=== PATIENT | male | born 1965 | race Two or more races ===

== ENCOUNTER 2019-02-09 12:27 | Emergency (ER) | payer BC ==
[2019-02-09] MEDS ORDERED: Proparacaine 0.5% Ophth Soln 15 ML Bottle EYELF ONE (13:31)
--- NOTE | 2019-02-09 13:31 | EDM.PDOC ---
ED HPI GENERAL MEDICAL PROBLEM - General Chief Complaint: Eye Problems Stated Complaint: LEFT EYE IRRITATION Time Seen by Provider: 02/09/19 13:07 Source of Information: Reports: Patient History Limitations: Reports: Language Barrier, Other (he does speak some Vincentian; seemed to be able to tell me what is going on without difficulty.) - History of Present Illness INITIAL COMMENTS - FREE TEXT/NARRATIVE: He states he has felt like something is scratching his left eye for the last 3 days. no injury; denies anyone else having issues; no visual problems; has had some yellow discharge. Onset: Gradual Duration: Day(s): (3) Location: Reports: Other (left eye) Quality: Reports: Other (irritating/scratchy) Severity: Mild Improves with: Reports: None Worsens with: Reports: None Associated Symptoms: Reports: No Other Symptoms Treatments PIT CLERK: Reports: Other (see below) (visine; helped for a short period of time) - Related Data Allergies Allergy/AdvReac Type Severity Reaction Status Date / Time No Known Allergies Allergy Verified 02/09/19 13:35 Home Meds: Home Meds Polymyxin B Sulf/Trimethoprim [Polymyxin B-Tmp Eye Drops] 10 ml OP Q4HR 7 Days # 1 bottle 02/09/19 [Rx] ED ROS GENERAL - Review of Systems Review Of Systems: See Below Constitutional: Reports: No Symptoms HEENT: Reports: Other (left eye irritation) Respiratory: Reports: No Symptoms Cardiovascular: Reports: No Symptoms GI/Abdominal: Reports: No Symptoms Musculoskeletal: Reports: No Symptoms Skin: Reports: No Symptoms Neurological: Reports: No Symptoms Psychiatric: Reports: No Symptoms ED EXAM GENERAL W FULL EYE - Physical Exam Exam: See Below Exam Limited By: No Limitations General Appearance: Alert, WD/WN, No Apparent Distress Eye Exam: Bilateral Eye: EOMI, Normal Inspection, PERRL Eyelids: Left: Erythema, Lid Everted for Exam, Bilateral: Normal Appearance Conjunctiva & Sclera: Left: Normal Appearance Cornea Exam: Left: Corneal Abrasion Extraocular Movements: Bilateral: Intact Pupillary Size: Bilateral: 4 mm Head: Atraumatic, Normocephalic Neck: Normal Inspection, Supple, Full Range of Motion Respiratory/Chest: No Respiratory Distress, Lungs Clear Cardiovascular: Regular Rate, Rhythm Extremities: Normal Range of Motion Neurological: Alert, Oriented, CN II-XII Intact, Normal Cognition, Normal Gait Psychiatric: Normal Affect, Normal Mood Skin Exam: Warm, Dry ED EYE w/ Add Procedure - Eye Procedure Alcaine Drops Administered: Yes - Additional/Other Procedure(s) Other (Free Text) Procedure(s) [Text1]: [place]ard lamp used; reveals corneal abrasion at 0900 position. Course - Vital Signs Last Recorded V/S: Last Vital Signs Temp 95.9 F 02/09/19 13:49 Pulse 72 02/09/19 13:49 Resp 16 02/09/19 13:49 BP 169/105 H 02/09/19 13:49 Pulse Ox 98 02/09/19 13:49 - Orders/Labs/Meds Orders: Active Orders 24 hr Category Date Time Status Visual Acuity [Vision Test] [RC] ASDIRECTED Care 02/09/19 13:09 Active Meds: Medications Discontinued Medications Generic Name Dose Route Start Last Admin Trade Name Freq PRN Reason Stop Dose Admin Proparacaine HCl 1 ml 02/09/19 13:31 02/09/19 13:50 Proparacaine 0.5% Ophth Soln EYELF 02/09/19 13:32 1 ml ONETIME ONE Administration Departure - Departure Time of Disposition: 14:30 Disposition: Home, Self-Care 01 Condition: Good Clinical Impression: Corneal abrasion Qualifiers: Encounter type: initial encounter Laterality: left Qualified Code(s): S05.02XA - Injury of conjunctiva and corneal abrasion without foreign body, left eye, initial encounter - Discharge Information *PRESCRIPTION DRUG MONITORING PROGRAM REVIEWED*: Not Applicable *COPY OF PRESCRIPTION DRUG MONITORING REPORT IN PATIENT [place]: Not Applicable Prescriptions: Polymyxin B Sulf/Trimethoprim [Polymyxin B-Tmp Eye Drops] 10 ml OP Q4HR 7 Days # 1 bottle Instructions: Corneal Abrasion, [id number] Referrals: PCP,None [Primary Care Provider] - Forms: ED Department Discharge Additional Instructions: Recommend follow up with eye doctor next week Return if symptoms worsen Have your blood pressure evaluated with your primary care within the next week. - Problem List & Annotations (1) Corneal abrasion SNOMED Code(s): 73695480 Code(s): S05.00XA - INJ CONJUNCTIVA AND CORNEAL ABRASION W/O FB, UNSP EYE, INIT Status: Acute Priority: Low Qualifiers: Encounter type: initial encounter Laterality: left Qualified Code(s): S05.02XA - Injury of conjunctiva and corneal abrasion without foreign body, left eye, initial encounter - Problem List Review Problem List Initiated/Reviewed/Updated: Yes - My Orders Last 24 Hours: My Active Orders 02/09/19 13:09 Visual Acuity [Vision Test] [RC] ASDIRECTED - Assessment/Plan Last 24 Hours: My Active Orders 02/09/19 13:09 Visual Acuity [Vision Test] [RC] ASDIRECTED
== END 2019-02-09 14:05 | disposition home or self-care (01) ==
LOC: JP.ED 12:27
DX: S05.02XA Injury of conjunctiva and corneal abrasion without foreign body, left eye, initial encounter (principal); X58.XXXA Exposure to other specified factors, initial encounter
CPT/HCPCS: 99283; A9270

== ENCOUNTER 2019-05-31 00:30 | Emergency (ER) | payer BC ==
[2019-05-31] MEDS ORDERED: Ketorolac 60 MG/2 ML SDV IM ONE (00:48)
[2019-05-31] MEDS ORDERED: Acetaminophen/oxyCODONE 325-5 MG Tab PO ONE (00:51)
--- NOTE | 2019-05-31 00:53 | EDM.PDOC ---
ED HPI GENERAL MEDICAL PROBLEM - General Chief Complaint: Lower Extremity Injury/Pain Stated Complaint: LEFT KNEE PAIN Time Seen by Provider: 05/31/19 00:40 Source of Information: Reports: Patient, Old Records History Limitations: Reports: Language Barrier - History of Present Illness INITIAL COMMENTS - FREE TEXT/NARRATIVE: 53 yo male here for L knee pain. He has passable Telugu skills. He was in the clinic recently for this problem and was dx with prepatellar bursitis and placed on cephalexin and naproxen. He somehow managed to get the cephalexin and is taking it, but never go the naproxen. He is taking acetaminophen. He says since he was in the clinic his problem has only worsened. He has throbbing pain at rest that is keeping him awake. He does not have a lot of problem with walking. 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 Constitutional: Reports: No Symptoms Musculoskeletal: Reports: Joint Pain (anterior L knee pain) Skin: Reports: No Symptoms Neurological: Reports: No Symptoms ED EXAM, GENERAL - Physical Exam Exam: See Below Exam Limited By: No Limitations General Appearance: Alert, WD/WN, No Apparent Distress Extremities: Pedal Edema (swelling of area below the patella and above the tibial tubercle. No joint effusion is apparent. No jt line tenderness. ), Limited Range of Motion (reduced flexion ability due to swelling of prepatellar bursal area. ), Increased Warmth (over prepatellar bursa). No: No Pedal Edema, Redness Skin Exam: Warm, Dry, Intact, Normal Color, No Rash, Other (calloused skin over both anterior knee areas. ) Course - Vital Signs Last Recorded V/S: Last Vital Signs Temp 36.1 C 05/31/19 00:39 Pulse 76 05/31/19 00:39 Resp 20 05/31/19 00:39 BP 162/80 H 05/31/19 00:39 Pulse Ox 97 05/31/19 00:39 - Orders/Labs/Meds Orders: Active Orders 24 hr Category Date Time Status Ketorolac [Toradol] Med 05/31/19 00:48 Once 60 mg IM ONETIME ONE Departure - Departure Time of Disposition: 01:10 Disposition: Home, Self-Care 01 Condition: Fair Clinical Impression: Prepatellar bursitis Qualifiers: Laterality: left Qualified Code(s): M70.42 - Prepatellar bursitis, left knee - Discharge Information *PRESCRIPTION DRUG MONITORING PROGRAM REVIEWED*: No *COPY OF PRESCRIPTION DRUG MONITORING REPORT IN PATIENT [place]: No Instructions: Bursitis, [id number] Referrals: PCP,None [Primary Care Provider] - Additional Instructions: No kneeling. Ice the left anterior knee area for 15 minutes 3-4 times daily. Start the naproxen 500 mg every 12 hrs with food starting in the morning. You may continue the acetaminophen up to 1000 mg every 6 hrs for added pain relief. Finish your cephalexin. Return to the clinic for recheck if not improving. You may use the [place] at night for pain relief if acetaminophen is not strong enough to control your pain. - My Orders Last 24 Hours: My Active Orders 05/31/19 00:48 Ketorolac [Toradol] 60 mg IM ONETIME ONE - Assessment/Plan Last 24 Hours: My Active Orders 05/31/19 00:48 Ketorolac [Toradol] 60 mg IM ONETIME ONE
== END 2019-05-31 01:22 | disposition home or self-care (01) ==
LOC: JP.ED 00:30
DX: M70.42 Prepatellar bursitis, left knee (principal)
CPT/HCPCS: 96372; 99283; A9270; J1885

== ENCOUNTER 2019-09-07 18:51 | Emergency (ER) | payer BC ==
[2019-09-07] MEDS ORDERED: Meclizine 25 MG Tab PO ONE (19:44)
--- NOTE | 2019-09-07 19:50 | EDM.PDOC ---
ED HPI GENERAL MEDICAL PROBLEM - General Chief Complaint: General Stated Complaint: DIZZY, NAUSEA Time Seen by Provider: 09/07/19 19:25 Source of Information: Reports: Patient History Limitations: Reports: No Limitations - History of Present Illness INITIAL COMMENTS - FREE TEXT/NARRATIVE: This is a 53-year-old male presents to concerns of dizziness and room spinning. He reports that he awoke from sleep this afternoon with a mild bifrontal headache. This dissipated but he continues to have sensation that he is moving. He notes that this is worse when he lowers his head towards the ground. He's had no associated vision changes, no difficulty with speech. No gait instability , no difficulty with coordination. No weakness in the extremities. He has no history of similar symptoms in the past. He current has no headache. No neck pain. Reports no history of chronic medical problems. History obtained with professional speech language pathologist prn. - Related Data Allergies Allergy/AdvReac Type Severity Reaction Status Date / Time No Known Allergies Allergy Verified 09/07/19 19:17 Home Meds: Home Meds Meclizine [Antivert] 25 mg PO Q6H PRN #10 tab 09/07/19 [Rx] Past Medical History - Past Health History Medical/Surgical History: Denies Medical/Surgical History - Past Surgical History GI Surgical History: Reports: Appendectomy Social & Family History - Tobacco Use Smoking Status *Q: Never Smoker - Caffeine Use Caffeine Use: Reports: Coffee - Recreational Drug Use Recreational Drug Use: No ED ROS GENERAL - Review of Systems Review Of Systems: See Below Constitutional: Reports: No Symptoms HEENT: Reports: No Symptoms Respiratory: Reports: No Symptoms Cardiovascular: Reports: No Symptoms Endocrine: Reports: No Symptoms GI/Abdominal: Reports: Nausea : Reports: No Symptoms Musculoskeletal: Reports: No Symptoms Skin: Reports: No Symptoms Neurological: Reports: Other (vertigo). Denies: Numbness, Syncope, Trouble Speaking, Weakness, Gait Disturbance Psychiatric: Reports: No Symptoms Hematologic/Lymphatic: Reports: No Symptoms Immunologic: Reports: No Symptoms ED EXAM, GENERAL - Physical Exam Exam: See Below Exam Limited By: No Limitations General Appearance: Alert, No Apparent Distress Ears: Normal External Exam Nose: Normal Inspection Throat/Mouth: Normal Inspection Head: Atraumatic, Normocephalic Respiratory/Chest: Lungs Clear GI/Abdominal: Soft, Non-Tender Back Exam: Normal Inspection Neurological: Alert, Oriented, CN II-XII Intact, Normal Gait, No Motor/Sensory Deficits, Other (EOMI, no nystagmus. Cranial nerves otherwise intact, speech is fluid. Finger nose testing intact. Stable gait. No extermity weakness.) Psychiatric: Normal Affect, Normal Mood Skin Exam: Warm, Dry Course - Vital Signs Last Recorded V/S: Last Vital Signs Temp 36.4 C 09/07/19 19:09 Pulse 67 09/07/19 19:09 Resp 16 09/07/19 19:09 BP 161/92 H 09/07/19 19:09 Pulse Ox 96 09/07/19 19:09 - Orders/Labs/Meds Orders: Active Orders 24 hr Category Date Time Status Meclizine [Antivert] Med 09/07/19 19:44 Once 25 mg PO ONETIME ONE Medication Orders Meclizine HCl (Antivert) 25 mg PO ONETIME ONE Stop: 09/07/19 19:45 Meds: Medications Generic Name Dose Route Start Last Admin Trade Name Freq PRN Reason Stop Dose Admin Meclizine HCl 25 mg 09/07/19 19:44 Antivert PO 09/07/19 19:45 ONETIME ONE - Re-Assessments/Exams Free Text/Narrative Re-Assessment/Exam: 53 yo who presents with concerns of vertigo, nausea. Normal neurologic exam. Reports some positional component. Had mild ASHER earlier today but this has resolved. History and exam is consistent with peripheral etiology, I don't think we need to work him up for stroke. Will treat symptomatically with script for meclizine. PCP f/u prn. Will return to the ER for worsening symptoms or new concerning symptoms suggestive of stroke. 09/07/19 19:54 Departure - Departure Time of Disposition: 19:55 Disposition: Home, Self-Care 01 Clinical Impression: Vertigo - Discharge Information Instructions: Vertigo, [id number] Referrals: PCP,None [Primary Care Provider] - Additional Instructions: Please take the prescribed antibiotic. Return to the ER for worsening symptoms, particularly if you develop difficulty with walking, speech changes, double vision, or other new symptoms which are concerning to you. Follow up with your primary doctor as needed. Sepsis Event Note - Evaluation Sepsis Screening Result: No Definite Risk - Focused Exam Vital Signs: Vital Signs Temp Pulse Resp BP Pulse Ox 09/07/19 19:09 36.4 C 67 16 161/92 H 96 Date Exam was Performed: 09/07/19 Time Exam was Performed: 19:45 - My Orders Last 24 Hours: My Active Orders 09/07/19 19:44 Meclizine [Antivert] 25 mg PO ONETIME ONE - Assessment/Plan Last 24 Hours: My Active Orders 09/07/19 19:44 Meclizine [Antivert] 25 mg PO ONETIME ONE
== END 2019-09-07 20:32 | disposition home or self-care (01) ==
LOC: JP.ED 18:51
DX: R42 Dizziness and giddiness (principal)
CPT/HCPCS: 99283; A9270

== ENCOUNTER 2021-08-11 21:16 | Emergency (ER) | payer BC, OTHER ==
--- NOTE | 2021-08-11 22:13 | EDM.PDOC ---
ED HPI GENERAL MEDICAL PROBLEM - General Chief Complaint: Respiratory Problem Stated Complaint: cough, sorethroat, positive covid test Time Seen by Provider: 08/11/21 21:35 Source of Information: Reports: Patient History Limitations: Reports: Language Barrier (placement coordinator services used) - History of Present Illness INITIAL COMMENTS - FREE TEXT/NARRATIVE: 55-year-old male presents to the emergency department with sore throat, cough, pleuritic chest pain, and pain across the upper abdomen from coughing. He was diagnosed with acute COVID-19 illness on August 08. He started having symptoms 2 days prior to this. Patient has had 2 doses of COVID-19 vaccine. Last immunization was in February. Patient was not aware of any ill contacts. Currently denies fever. Patient's health history is remarkable for history of renal stones. Blood pressure is elevated in the emergency department and he denies any medication for hypertension. Surgical history includes appendectomy and a procedure for pilonidal cyst. Denies any medication allergies. Non- smoker. Enjoys drinking beer on the weekends. Will have 3-4 beers at a time. No recreational drug use. Family history is unremarkable. Throat Pain Score (Numeric/FACES): 3 - Related Data Allergies Allergy/AdvReac Type Severity Reaction Status Date / Time No Known Allergies Allergy Verified 08/11/21 21:21 Past Medical History - Past Health History Medical/Surgical History: Denies Medical/Surgical History Genitourinary History: Reports: Renal Calculus - Past Surgical History GI Surgical History: Reports: Appendectomy Social & Family History - Tobacco Use Tobacco Use Status *Q: Unknown Ever Used Tobacco - Caffeine Use Caffeine Use: Reports: Tea - Recreational Drug Use Recreational Drug Use: No ED ROS GENERAL - Review of Systems Review Of Systems: See Below Constitutional: Denies: Fever HEENT: Reports: Rhinitis, Throat Pain Respiratory: Reports: Pleuritic Chest Pain, Cough Cardiovascular: Reports: No Symptoms Endocrine: Reports: No Symptoms GI/Abdominal: Reports: No Symptoms : Reports: No Symptoms Musculoskeletal: Reports: Muscle Pain Skin: Reports: No Symptoms Neurological: Reports: No Symptoms Psychiatric: Reports: No Symptoms Hematologic/Lymphatic: Reports: No Symptoms Immunologic: Reports: No Symptoms ED EXAM, GENERAL - Physical Exam Exam: See Below Free Text/Narrative:: Patient appears mildly ill. He is alert and in no acute distress. HEENT: Pupils equal. Extraocular movements are intact. TMs are clear. Nares are patent. Nasal mucosa is edematous and erythematous. There is clear rhinorrhea. Oral mucosa is moist. There are no lesions or exudates. I cannot see the uvula or posterior pharynx. Neck: Diameter was not measured, but it is very thick. Trachea is midline. I cannot appreciate any lymphadenopathy. No masses. Lungs: Expiratory wheeze. No tachypnea. No accessory muscle use. No rhonchi. Cardiovascular: Regular rate and rhythm. No murmurs. Abdomen: Obese, nontender. Extremities: Warm and well perfused. Normal capillary refill. No cyanosis. Skin: Adequate turgor. No rashes. Neurologic: Grossly intact without deficits. Course - Vital Signs Last Recorded V/S: Last Vital Signs Temp 98.3 F 08/11/21 21:39 Pulse 97 08/11/21 21:39 Resp 20 08/11/21 21:39 BP 151/80 H 08/11/21 21:39 Pulse Ox 97 08/11/21 21:39 Departure - Departure Time of Disposition: 22:21 Disposition: Home, Self-Care 01 Condition: Good Clinical Impression: Acute COVID-19, Cough, Pharyngitis, Myalgia - Discharge Information *PRESCRIPTION DRUG MONITORING PROGRAM REVIEWED*: Not Applicable *COPY OF PRESCRIPTION DRUG MONITORING REPORT IN PATIENT [place]: Not Applicable Instructions: Symptoms of COVID-19 - [facility] (09/27/2020), COVID-19 Quarantine vs. Isolation - [facility] (05/02/2021), Sore Throat, [id number], COVID-19: What to Do If You Are Sick- [facility] (10/20/2020) Referrals: PCP,None [Primary Care Provider] - Additional Instructions: Monitor symptoms. Return to emergency department if symptoms worsen acutely. Wait for phone call tomorrow for scheduling of monoclonal antibody therapy. Patient was deemed appropriate based upon clinical criteria. Orders were signed and verbal consent was obtained. Sepsis Event Note (ED) - Evaluation Sepsis Screening Result: No Definite Risk - Focused Exam Vital Signs: Vital Signs Temp Pulse Resp BP Pulse Ox 08/11/21 21:39 98.3 F 97 20 151/80 H 97 - Assessment/Plan Assessment:: 1. Acute COVID-19 infection with mild symptoms. 2. Pharyngitis secondary to #1 3. Cough secondary to #1 4. Myalgias secondary to #1 5. Comorbidities including obesity and hypertension. ethnicity. Has received 2 doses of COVID 19 vaccine. Plan: Patient does not meet criteria for hospitalization. His vital signs are stable and there are no signs of respiratory distress. Patient qualifies for monoclonal antibody therapy. Discussed plan to do manager primary care with return precautions given. Patient will receive monoclonal antibody therapy as soon as tomorrow. We discussed symptomatic and supportive care. I offered Tessalon Perles (100 mg PO TID prn) for cough. I offered naproxen (500 mg PO BID prn) for pain relief. I offered albuterol inhaler for bronchospasm and he may use this every 4-6 hours as directed. Medications were prescribed out of the [employer] machine. All questions were answered to patient satisfaction. Interpreted services was used for this encounter.
== END 2021-08-11 22:40 | disposition home or self-care (01) ==
LOC: JP.ED 21:16
DX: U07.1 COVID-19 (principal); J02.9 Acute pharyngitis, unspecified; Z86.16 Personal history of COVID-19
CPT/HCPCS: 99283

== ENCOUNTER 2021-08-13 20:55 | Emergency (ER) | payer OTHER ==
--- NOTE | 2021-08-13 22:46 | EDM.PDOC ---
ED HPI GENERAL MEDICAL PROBLEM - General Chief Complaint: Respiratory Problem Stated Complaint: SORE THROAT, COVID POSITIVE , CONGESTION Time Seen by Provider: 08/13/21 20:57 Source of Information: Reports: Patient History Limitations: Reports: No Limitations - History of Present Illness INITIAL COMMENTS - FREE TEXT/NARRATIVE: 55-year-old male presents to the emergency department. This is a recheck for cough. He was seen 2 days ago in the emergency department with COVID-19 illness. Patient qualified for monoclonal antibody therapy and received that yesterday. He was given prescriptions for Tessalon Perles for cough, albuterol for wheeze, naproxen for pain, and he has purchased Mucinex for cough. He states that his cough is very dry. He has high-pitched sound when he coughs. No fevers. States that he is breathing well. Denies adverse reaction to monoclonal antibody therapy. Has been having symptoms of COVID-19 illness for 1 week. His positive COVID test was on Sunday. - Related Data Allergies Allergy/AdvReac Type Severity Reaction Status Date / Time No Known Allergies Allergy Verified 08/13/21 22:32 Home Meds: Home Meds Benzonatate [Tessalon Perles] 1 cap PO ASDIRECTED 08/13/21 [History] Naproxen 500 mg PO ASDIRECTED 08/13/21 [History] guaiFENesin [Mucinex] 1 tab PO ASDIRECTED 08/13/21 [History] Past Medical History - Past Health History Medical/Surgical History: Denies Medical/Surgical History Genitourinary History: Reports: Renal Calculus - Past Surgical History GI Surgical History: Reports: Appendectomy Social & Family History - Tobacco Use Tobacco Use Status *Q: Unknown Ever Used Tobacco - Caffeine Use Caffeine Use: Reports: Tea ED ROS GENERAL - Review of Systems Review Of Systems: See Below Constitutional: Denies: Fever HEENT: Reports: No Symptoms Respiratory: Reports: Cough Cardiovascular: Reports: No Symptoms GI/Abdominal: Denies: No Symptoms Musculoskeletal: Denies: No Symptoms ED EXAM, GENERAL - Physical Exam Exam: See Below Free Text/Narrative:: General: Well-appearing and in no acute distress. HEENT: Pupils equal. Conjunctiva clear. TMs clear. Nares are patent. No rhinorrhea. Oral mucosa moist. No lesions or exudates. Cannot see posterior pharynx. Mallampati 4. Neck: Trachea midline. No midline mass. No lymphadenopathy. He has high- pitched sound with cough. No stridor with normal breathing. Chest/lungs clear to auscultation bilaterally. No wheeze. Cardiovascular: Regular rate and rhythm. Extremities: Warm and well-perfused. Exam Limited By: No Limitations Course - Vital Signs Last Recorded V/S: Last Vital Signs Temp 97.3 F 08/13/21 22:31 Pulse 74 08/13/21 22:31 Resp 18 08/13/21 22:31 BP 144/69 H 08/13/21 22:31 Pulse Ox 97 08/13/21 22:31 Departure - Departure Time of Disposition: 22:47 Disposition: Home, Self-Care 01 Condition: Good Clinical Impression: Acute COVID-19, Cough - Discharge Information *PRESCRIPTION DRUG MONITORING PROGRAM REVIEWED*: Not Applicable *COPY OF PRESCRIPTION DRUG MONITORING REPORT IN PATIENT [place]: Not Applicable Instructions: Cough, Adult, [id number], COVID-19: What to Do If You Are Sick- [facility] (10/20/2020) Referrals: PCP,None [Primary Care Provider] - Additional Instructions: Activity as tolerated. Diet as tolerated. Add prednisone 40 mg daily for 5 days. Discard unused portion. This was prescribed out of the [employer] machine. Discussed honey for cough. May use 1 teaspoon every 2-4 hours as needed. Continue Mucinex. Continue Tessalon. Discontinue naproxen. Sepsis Event Note (ED) - Evaluation Sepsis Screening Result: No Definite Risk - Focused Exam Vital Signs: Vital Signs Temp Pulse Resp BP Pulse Ox 08/13/21 22:31 97.3 F 74 18 144/69 H 97 - Assessment/Plan Assessment:: 1. COVID-19 with acute upper respiratory infection. Clinically improved compared to 2 days ago. Patient has received monoclonal antibody therapy in the interim. 2. Relative degree of upper airway obstruction, only heard with cough. Plan: Insta meds prescription for prednisone given before discharge. This was prescribed for relative upper airway obstruction that was only heard with c oughing. Patient did not have any stridor with normal respiration. Recommend honey for cough. Follow-up if symptoms worsen acutely. I am reassured that this patient looks better today than he did 2 days ago.
== END 2021-08-13 22:58 | disposition home or self-care (01) ==
LOC: JP.ED 20:55
DX: U07.1 COVID-19 (principal)
CPT/HCPCS: 99283